=== PATIENT | male | born 1950 | race Caucasian/White ===

== ENCOUNTER 2024-09-01 06:46 | Day surgery (SDC) | payer OTHER, SELFPAY ==
[2024-08-18 09:39] VITALS: BMI 28.4
[2024-08-18 11:08] LABS: Hematocrit 41.7 % (39.0-52.0); Hemoglobin 14.4 g/dL (13.0-18.0); Mean Corp Hgb Conc. 34.5 g/dL (33.0-37.0); Mean Corpuscular Hgb 31.4 pg (27.0-31.0); Mean Corpuscular Volume 90.8 fL (80.0-94.0); Mean Platelet Volume 9.6 fL (7.4-10.4); Platelet Count 261 10^3/uL (130-400); Red Blood Cell Count 4.59 10^6/uL (4.70-6.10); Red Cell Dist. Width 14.2 % (11.5-14.5); White Blood Cell Count 3.4 10^3/uL (4.8-10.8)
[2024-08-18 11:14] LABS: INR 1.06; PT 13.6 Sec (11.4-14.6)
[2024-08-18 11:36] LABS: ALT (SGPT) 27 U/L (0-50); AST (SGOT) 29 U/L (17-59); Albumin 4.1 g/dl (3.5-5.0); Alkaline Phosphatase 35 U/L (38-126); Blood Urea Nitrogen 18 mg/dl (9-20); Calcium 9.3 mg/dl (8.4-10.2); Carbon Dioxide 27 mmol/L (22-30); Chloride 104 mmol/L (98-107); Estimated Creatinine Clearance 90 ml/min; Glucose 80 mg/dl (70-99); Potassium 4.4 mmol/L (3.5-5.1); Sodium 141 mmol/L (135-145); Total Bilirubin 1.8 mg/dl (0.2-1.3); Total Protein 6.2 g/dl (6.3-8.2); eGFR > 60.00
[2024-09-01] VITALS (7 sets, daily range): BP systolic 105–152; BP diastolic 65–79; BMI 28.3
[2024-09-01] MEDS: HEPARIN 5000 UNITS SC (09:10)
[2024-09-01] MEDS: TYLENOL 1000 MG PO (09:11)
[2024-09-01] MEDS: NEURONTIN 300 MG PO (09:11)
--- NOTE | 2024-09-01 10:53 | OR.RPT ---
Operative Report
Operative Report
DATE OF OPERATION: September 01, 2024
PREOPERATIVE DIAGNOSIS: Left Multinodular Goiter - E042
POSTOPERATIVE DIAGNOSIS: Same
SURGEON: Kevin Troy M.D.
OPERATION: Completion Total Thyroidectomy - 01162
ANESTHESIA: GET
ESTIMATED BLOOD LOSS: 5 cc
DRAINS: None
SPECIMEN: left total thyroid lobe and isthmus
FINDINGS: Multinodular substernal goiter
COMPLICATIONS:� None
PROCEDURE:
The patient was taken to the operating room and placed in the usual supine position. After adequate general endotracheal anesthesia was established, the patient�s neck was extended, prepped, and draped in the typical sterile fashion. The old
transcervical incision was reopened with #15 blade, which was taken through the skin into the subcutaneous tissue. The underlying platysma muscle was divided, and subplatysmal flaps were created superiorly to the thyroid cartilage and inferiorly to
the sternal notch. Strap muscles were identified and at the midline.
Attention was turned to the patient�s left thyroid lobe, which was noted to be multinodular. The left thyroid lobe was mobilized medially. During this process, the left middle thyroid vein and inferior thyroid artery were dissected and ligated with
Ligasure. There was a substernal extension, which was delivered out of the mediastinum through the cervical incision. Next, the left superior pole was taken down by dissecting and transecting the superior pole vessels with a Ligasure. The left
thyroid lobe was mobilized medially. During this process, the left recurrent laryngeal nerve was identified and preserved throughout its entire course. The left superior and parathyroid gland was identified and preserved. The left thyroid lobe with
isthmus was resected off the trachea and sent to the pathology department.
After obtaining adequate hemostasis, the strap muscle was approximated with #3-0 Vicryl in a running fashion, and platysma muscles were reapproximated with #3-0 Vicryl in an interrupted fashion, and the skin was approximated with #4-0 Monocryl in a
running subcuticular fashion. Steri-strips and sterile dressings were placed. The patient tolerated the procedure well. The final instrument, needle, and sponge counts were correct.
== END 2024-09-01 12:16 | disposition home or self-care (01) ==
LOC: SDS 06:46
PROVIDERS: ATTENDING PHYSICIAN Surgery; FAMILY PHYSICIAN Family Medicine
DX: C73 Malignant neoplasm of thyroid gland (principal); E04.2 Nontoxic multinodular goiter
CPT/HCPCS: 60260; 88307; 88311; 80053; 85027; 85610; 85730; 93005; C1776

== ENCOUNTER → 2024-12-17 09:00 | Outpatient (REF) | payer BC, SELFPAY | LOC: RAD 09:00 | PROVIDERS: ATTENDING PHYSICIAN Family Medicine | DX: Z92.241 Personal history of systemic steroid therapy (principal) | CPT/HCPCS: 77080 ==

== ENCOUNTER → 2025-01-04 12:38 | Outpatient (REF) | payer BC, SELFPAY | LOC: HWRAD 12:38 | PROVIDERS: ATTENDING PHYSICIAN Internal Medicine Critical Care Medicine; FAMILY PHYSICIAN Family Medicine | DX: J18.9 Pneumonia, unspecified organism (principal) | CPT/HCPCS: 71250 ==

== ENCOUNTER → 2025-08-20 16:28 | Outpatient (REF) | payer BC, SELFPAY | LOC: RAD 16:28 | PROVIDERS: ATTENDING PHYSICIAN Family Medicine | DX: R10.11 Right upper quadrant pain (principal) | CPT/HCPCS: 76700 ==

== ENCOUNTER 2025-09-23 03:31 | Emergency (ER) | payer BC, MEDICARE, SELFPAY ==
[2025-09-23 03:34] VITALS: BP 144/78
[2025-09-23 04:11] VITALS: BMI 29.3
[2025-09-23 05:30] VITALS: BP 118/75
--- NOTE | 2025-09-23 06:32 | ED.GENMED ---
History of Present Illness
General
Chief Complaint: Musculo-Skeletal Complaint
Source: patient
Exam Limitations: none
Time Seen by Provider: 09/23/25 06:04
Nursing documentation reviewed up to this point in time: agreed with
History of Present Illness
History of Present Illness:
Patient is a 75-year-old male who presents to the ER complaining of pain to left calf. He reports about a week ago he had left hip pain rein down his left thigh feeling like sciatica. He has been icing it and using Tylenol. That has improved
however for the last couple days he has had soreness to the left calf. He also complains of numbness and tingling mildly in his left foot toes. He denies any previous DVT. Denies any chest pain shortness of breath fever chills. Patient is not
able to have NSAIDs because he has a history of dry and arteritis and therefore has been taking Tylenol. He is treated by rheumatology and does receive Actemra infusions.
Past History
Past History
ED Past Medical History: Asthma, Cancer (Skin Melanoma, ), HTN, Hypercholesterolemia, Hypothyroidism and Other (Chronic prostatitis , PNA, )
ED Past Surgical History: Orthopedic (Right knee surgery, Finger surgery, right rotator cuff surgery), Tonsilectomy, Urological (Right Orchiectomy, TURP, Ureteral stent, vasectomy) and Other ( thyroidectomy, IH repair, Sinus sx )
Social History
Tobacco: Former smoker
Alcohol: Occasional
Drug: Other
Personal:
Living: with family
Employment: Employed
Family History
Family History: Other (Reviewed and non-contributory)
Phy Exam
General Physical Exam
General Presentation: no apparent distress
General age: appears stated age
General Skin: warm and dry
General Habitus: normal
General Mental: alert
General Hydration: appears well hydrated
Neurological Exam
Neurological Exam: alert and oriented x3
Musculoskeletal Exam
Musculoskeletal Exam: full ROM and other (No calf swelling tenderness or redness strong distal pulses normal sensation)
Skin Exam
Skin Exam: normal color and warm/dry
Psychiatric Exam
Psychiatric Exam: normal mood/affect
Course
Orders/Labs/Results
Orders:
Orders
09/23/25 05:39
US Legs, Left [US Periph Venous LOWER Ext LT] Urgent
Comment:
Reason For Exam: L calf pain
Vital Signs
Initial and Last Documented VS:
Initial Vital Signs
Temp Pulse Resp BP Pulse Ox
98.2 F 61 18 144/78 95
09/23/25 03:34 09/23/25 03:34 09/23/25 03:34 09/23/25 03:34 09/23/25 03:34
Last Documented Vital Signs
Temp Pulse Resp BP Pulse Ox
98.2 F 57 14 118/75 95
09/23/25 03:34 09/23/25 05:30 09/23/25 05:30 09/23/25 05:30 09/23/25 06:35
MDM/Problems Addressed
Differential Diagnosis Includes:
Not limited to muscular pain, DVT, radicular pain/sciatica
MDM/Problems Addressed:
Patient is a 75-year-old male who presented for symptoms consistent with sciatica from his left hip to his left thigh for the past week however now has discomfort in his left calf along with some mild numbness and tingling his left foot and toes.
No obvious swelling on exam no evidence of infection strong pulses normal neurovascular exam.
Likely radicular pain. He does have an appointment to get his Actemra infusion for giant cell arteritis discussed with patient to first discuss with his mycology teacher if okay for steroids. A prescription for steroid taper was sent to his
pharmacy. He is instructed to follow-up with family doctor or return if any worsening of symptoms. He is well-appearing and nontoxic stable for discharge home
*Radiology
Radiology exam reviewed: radiology read reviewed
*Pulse Oximetry
SaO2: 95
Oxygen Mode of Delivery: Room air
Patient hypoxic: no
*Critical Care Note
Total Time (30-74mins, 75-104mins- exclusive of procedures): Not Applicable
ED Attending Note
-
Portions of this chart may have been created with voice recognition software.� Occasional wrong word or��sound alike� substitutions may have occurred due to the inherent limitations of voice recognition software.
Discharge Plan
Departure
Patient Disposition: Home (Routine Discharge)
Date of Disposition: 09/23/25
Time of Disposition: 08:20
Patient with high blood pressure during this ER visit?: Yes
Condition: Fair
Covid-19: Not Applicable
Discharge Problem:
Radicular neuropathy
Instructions: Radiculopathy of the neck and back (including sciatica) (DC), BLOOD PRESSURE
Prescriptions:
New
prednisone 10 mg Tablet
See Rx Instructions .ROUTE .COMPLEX Qty: 30 0RF
Rx Instructions:
Take By Mouth:
40 mg daily x3 days, 30 mg daily x3 days,
20 mg daily x3 days, 10 mg daily x3 days.
No Action
levothyroxine 25 MCG tablet
112 mcg PO DAILY AT 0700
finasteride 5 MG tablet
5 mg PO HS
escitalopram oxalate 10 MG tablet
10 mg PO DAILY
atorvastatin 10 MG tablet
10 mg PO HS
Dupixent Pen 300 MG/2 ML pen injector
300 mg SC Q14D
Patient Comments:
INJECT 1 SYRINGE SC ON DAY 15, THEN 1 SYRINGE EVERY OTHER WEEK THEREAFTER
Rx Instructions:
Next dose due 08/21/2024
montelukast 10 mg Tablet
10 mg PO DAILY
silodosin [Rapaflo] 8 mg Capsule
8 mg PO HS
Centrum Silver Ultra Men's [id number] mcg Tablet
1 tab PO DAILY
Calcium Magnesium 500 mg calcium- 250 mg Tablet
2 tab PO BID
metformin 500 mg tablet
500 mg PO BID
riboflavin (vitamin B2) 400 mg tablet
100 mg PO DAILY
Actemra
1 dose IV drip QMONTH
vitamin W24-ygyxn acid 1,000-400 mcg Tablet, Sublingual
1 tab SUBLINGUAL DAILY
vitamin D3-vitamin K2 (MK4) 1,000-100 unit-mcg Tablet
1 tab PO DAILY
Probiotic
2 tab PO BID
Rx Instructions:
34 billion units
Referrals:
Kate Helm DO [Family Provider, Family Practice]
Activity Restrictions/Additional Instructions:
As discussed a prescription for prednisone was sent to your pharmacy. Please discuss with your mycology teacher and take as directed. Follow-up with your family doctor in the next several days.
return if any worsening of symptoms.
Interventions
Interventions:
*Risk Screen - Suicide Last Done: 09/23/25 03:37
*General Assessment Last Done: 09/23/25 03:37
*Neglect/Abuse Screening Last Done: 09/23/25 03:37
*ED- Fall Risk Assessment Last Done: 09/23/25 03:37
*ED COVID-19 Vaccine History Last Done: 09/23/25 03:37
*ED Influenza Vaccine History Last Done: 09/23/25 03:37
ED-Musculoskeletal Assessment Last Done: 09/23/25 04:00
Discharge Date and Time
Print Language: SURINAMESE
== END 2025-09-23 08:34 | disposition home or self-care (01) ==
LOC: EMR 03:31
PROVIDERS: EMERGENCY PHYSICIAN Emergency Medicine; FAMILY PHYSICIAN Family Medicine
DX: M54.10 Radiculopathy, site unspecified (principal); I10 Essential (primary) hypertension; E78.00 Pure hypercholesterolemia, unspecified; J45.909 Unspecified asthma, uncomplicated; M31.6 Other giant cell arteritis; E89.0 Postprocedural hypothyroidism; N41.1 Chronic prostatitis; Z87.891 Personal history of nicotine dependence; Z85.820 Personal history of malignant melanoma of skin
CPT/HCPCS: 99284; 93971

== ENCOUNTER → 2025-10-28 13:24 | Outpatient (REF) | payer BC, MEDICARE, SELFPAY | LOC: RAD 13:24 | PROVIDERS: ATTENDING PHYSICIAN Internal Medicine Rheumatology; FAMILY PHYSICIAN Family Medicine | DX: M17.10 Unilateral primary osteoarthritis, unspecified knee (principal); M47.26 Other spondylosis with radiculopathy, lumbar region | CPT/HCPCS: 72100; 73560; 73565 ==